=== PATIENT | female | born 1985 | race Caucasian/White ===

== ENCOUNTER 2019-12-11 09:39 | Emergency (ER) | payer MEDICAID, OTHER ==
[~2019-12-11] VITALS: Ht 162 cm; Wt 73.0 kg
[2019-12-11 09:45] VITALS: BP 138/95
--- OUTSIDE RECORDS SUMMARY | 2019-12-11 09:45 | XMS REPORT | Continuity of Care Document ---
Demographics x Preferred Language Unknown Marital Status Unknown Zoroastrianism Affiliation Unknown Race Unknown Ethnic Group Unknown Author Organization Unknown Address Unknown Phone Unavailable Allergies There is no data. Medications There is no data. Problems There is no data. Procedures There is no data. Results Test Result Range HCV RNA, QUANTITATIVE REAL TIME PCR - 09:38 HCV RNA, QUANTITATIVE REAL TIME PCR [id number] IU/mL NOT DETECTED HCV RNA, QUANTITATIVE REAL TIME PCR 5.45 Log IU/mL NOT DETECTED COMMENT NRG VITAMIN B12/FOLATE, SERUM PANEL - 09:38 VITAMIN B12 284 pg/mL 200-1100 FOLATE, SERUM 15.2 ng/mL NRG HEP C, GENOTYPE-APPROVAL REQUIRED - 09/02 11/20 16:05 HEPATITIS C VIRAL RNA GENOTYPE, LIPA(R) 1a NRG HEP C, FIBROSURE (INSURED ONLY)-APPROVAL REQUIRED - 10/07/18 14:43 FIBROSIS SCORE 0.10 NRG FIBROSIS STAGE F0 NRG FIBROSIS INTERPRETATION SEE NOTE NRG NECROINFLAMMAT ACT SCORE 0.16 NRG NECROINFLAMMAT ACT GRADE A0 NRG NECROINFLAMMAT INTERP SEE NOTE NRG ALPHA 2 MACROGLOBULIN 207 mg/dL 106-279 HAPTOGLOBIN 151 mg/dL 43-212 APOLIPOPROTEIN A1 136 mg/dL 101-198 TOTAL BILIRUBIN 0.5 mg/dL 0.2-1.2 GGT 17 U/L 3-50 ALT 38 U/L 6-29 REFERENCE ID [id number] NRG FOOTNOTE SEE NOTE NRG CULTURE, URINE - 04/12/19 11:01 CULTURE, URINE, ROUTINE SEE NOTE NRG GC/CHLAMYDIA (SWAB OR URINE)-RAPID - 01/21 11:02 CHLAMYDIA TRACHOMATIS RNA, TMA NOT DETECTED NOT DETECTED NEISSERIA GONORRHOEAE RNA, TMA NOT DETECTED NOT DETECTED COMMENT NRG HEP C PCR QUANT (Graph)-APPROVAL REQUIRE D - 06/24/19 11:07 HCV RNA, QUANTITATIVE REAL TIME PCR <15 NOT DETECT ED IU/mL NOT DETECTED HCV RNA, QUANTITATIVE REAL TIME PCR <1.18 NO T DETECTED Log IU/mL NOT DETECTED GC/CHLAMYDIA (SWAB OR URINE)-RAPID - 12/22 13:44 CHLAMYDIA TRACHOMATIS RNA, TMA NOT DETECTED NOT DETECTED NEISSERIA GONORRHOEAE RNA, TMA NOT DETECTED NOT DETECTED COMMENT NRG Encounters ACCT No. Visit Date/Time Discharge Status Pt. Type Provider Facility Loc./Unit Complaint [id number] 12/11/2019 08:50:00 ACT Outpatient [facility] [id number] 10/11/2019 13:20:00 Document Registration [id number] 06/24/2019 10:20:00 Document Registration [id number] 04/12/2019 10:20:00 Document Registration [id number] 10/07/2018 14:40:00 Document Registration [id number] 09/18/2018 15:00:00 Document Registration [id number] 09/14/2018 10:00:00 Document Registration [id number] 12/11/2019 09:41:[address] Emergency RAJIV VILLASENOR, JI Bah [facility] ER L FOOT PAIN
[2019-12-11] MEDS ORDERED: oxyCODONE/APAP 5/325MG (PERCOCET 5) TABLET PO ONE (10:00)
--- NOTE | 2019-12-11 10:21 | Diagnostic Imaging Report ---
EXAMINATION: Left foot 3 views HISTORY: Trauma COMPARISON: None available. FINDINGS: There is dorsal foot soft tissue swelling. No acute fracture is seen. Alignment is normal. Joint spaces are normal. IMPRESSION: 1. Dorsal soft tissue swelling of the left foot without acute fracture seen. Dictated by: Dictated on workstation # [id number]
--- NOTE | 2019-12-11 10:21 | Diagnostic Imaging Report ---
EXAMINATION: Left ankle 3 views HISTORY: Trauma COMPARISON: None available. FINDINGS: The orbits is intact. Talar dome is normal. No acute fracture is seen. There is mild lateral malleolar soft tissue swelling. IMPRESSION: 1. Mild lateral malleolar swelling without acute fracture. Dictated by: Dictated on workstation # [id number]
[2019-12-11] MEDS ORDERED: OXYC1TAB87 PO (11:17)
[2019-12-11] MEDS ORDERED: CYCL10TA9 PO (11:17)
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
== END 2019-12-11 11:27 | disposition home or self-care (01) ==
LOC: ER 09:41
DX: S97.82XA Crushing injury of left foot, initial encounter (principal); S90.32XA Contusion of left foot, initial encounter; S90.122A Contusion of left lesser toe(s) without damage to nail, initial encounter; W23.1XXA Caught, crushed, jammed, or pinched between stationary objects, initial encounter
CPT/HCPCS: 73610; 73630

== ENCOUNTER 2020-12-15 07:06 | Outpatient (CLI) | payer MEDICAID ==
[~2020-12-15] VITALS: Ht 162.6 cm; Wt 78.2 kg
[~2020-12-15 07:06] MED LIST: CYCL10TA9 PO; OXYC1TAB87 PO
[2020-12-15] MEDS ORDERED: NALT380S2 IM (14:08)
[2020-12-15] MEDS ORDERED: FLUO40CA12 PO (14:08)
== END 2020-12-15 14:19 | disposition home or self-care (01) ==
LOC: PREOP 07:06
PROVIDERS: ATTEND Specialist
DX: Z01.818 Encounter for other preprocedural examination (principal)

== ENCOUNTER 2020-12-22 07:55 | Day surgery (SDC) | payer MEDICAID ==
[~2020-12-22] VITALS: Ht 162 cm; Wt 78.0 kg
[~2020-12-22 07:55] MED LIST changes: +FLUO40CA12 PO; +NALT380S2 IM
[2020-12-22] MEDS ORDERED: TETRACAINE 0.5% OPHTH SOLN 4 ML BTL (SINGLE DOSE ONLY) OU PRN (08:15)
[2020-12-22] MEDS ORDERED: TROPICAMIDE 1% OPH SOLN (MYDRIACYL) 15 ML BTL OU PRN (08:15)
[2020-12-22] MEDS ORDERED: PHENYLEPHRINE 10% OPHTH (NEO-SYN) 5 ML BTL OU PRN (08:15)
[2020-12-22 08:18] VITALS: BP 121/83
--- NOTE | 2020-12-22 09:23 | Ophthalmologist Pre-Op Note ---
Pre-Operative Progress Note H&P Reviewed The H&P was reviewed, patient examined and no changes noted. Date H&P Reviewed: Dec 22, 2020 Time H&P Reviewed: 09:05 Pre-Op Dx Secondary Cataract, Right Eye CORA FLORES MD Dec 22, 2020 09:23
--- NOTE | 2020-12-22 09:24 | Ophthalmology Operative Report ---
YAG Capsulotomy PREOPERATIVE DIAGNOSIS: Secondary Cataract Right Eye POSTOPERATIVE DIAGNOSIS: Secondary Cataract Right Eye PROCEDURE: YAG Capsulotomy, right eye SURGEON: Arsenio Flores ANESTHESIA: Topical anesthesia COMPLICATIONS: None ESTIMATED BLOOD LOSS: Minimal DESCRIPTION OF PROCEDURE: After proper informed consent was obtained, the patient's, a 35 female, right eye received one drop of Tropicamide and one drop of Tetracaine. The patient was then placed at the YAG laser and using a power of [3.8 ] millijoules and [18 ] bursts were used to fashion a central capsulotomy. The patient tolerated the procedure well without complications. ARSENIO FLORES MD Dec 22, 2020 09:24
== END 2020-12-22 09:03 ==
LOC: SDC 07:55
PROVIDERS: ATTEND Specialist
DX: H26.491 Other secondary cataract, right eye (principal); F17.210 Nicotine dependence, cigarettes, uncomplicated